=== PATIENT | male | born 1995 | race Caucasian/White ===

== ENCOUNTER 2022-02-26 07:12 | Emergency (ER) | payer OTHER ==
[~2022-02-26] VITALS: Ht 175.3 cm; Wt 86.2 kg
[2022-02-26 08:22] LABS: BASO % 0.7 % (0.0-1.0); EOS % 0.7 % (0.0-3.0); HEMOGLOBIN 14.3 g/dl (13.5-17.5); LYMPH # 1.8 10^3/uL (1.5-5.0); LYMPH % 31.2 % (24.0-44.0); MEAN CORPUSCULAR HGB CONC 33.3 g/dl (32.0-36.5); MEAN CORPUSCULAR VOLUME 84.1 fl (80.0-96.0); MONO # 0.4 10^3/uL (0.0-0.8); MONO % 7.4 % (2.0-8.0); NEUTROPHILS # 3.5 10^3/uL (1.5-8.5); NEUTROPHILS % 59.8 % (36.0-66.0); PLATELET COUNT, AUTOMATED 284 10^3/uL (150-450); RED BLOOD COUNT 5.11 10^6/uL (4.30-6.10); WHITE BLOOD COUNT 5.8 10^3/uL (4.0-10.0)
[2022-02-26] MEDS ORDERED: KETOROLAC 30 MG/ML 1ML VIAL IV ONE (08:35)
[2022-02-26 08:56] LABS: ALT/SGPT 56 U/L (12-78); BILIRUBIN,TOTAL 0.4 MG/DL (0.2-1.0); BLOOD UREA NITROGEN 18 MG/DL (7-18); CALCIUM LEVEL 9.8 MG/DL (8.5-10.1); CARBON DIOXIDE LEVEL 29 MEQ/L (21-32); CHLORIDE LEVEL 106 MEQ/L (98-107); CREATININE FOR GFR 1.14 MG/DL (0.70-1.30); GLOMERULAR FILTRATION RATE > 60.0 (>60); GLUCOSE, FASTING 97 MG/DL (70-100); LIPASE 84 U/L (73-393); POTASSIUM SERUM 4.2 MEQ/L (3.5-5.1); SODIUM LEVEL 139 MEQ/L (136-145); TOTAL PROTEIN 7.8 GM/DL (6.4-8.2)
[2022-02-26] MEDS ORDERED: NAPR-837 PO (09:24)
[2022-02-26 09:41] VITALS: BP 130/66
== END 2022-02-26 09:47 | disposition home or self-care (01) ==
LOC: M ED 07:12
DX: R10.11 Right upper quadrant pain (principal); R10.31 Right lower quadrant pain; F17.200 Nicotine dependence, unspecified, uncomplicated
CPT/HCPCS: 80053; 83690; 85025; 96374; 99283; J1885